=== PATIENT | female | born 1955 | race Caucasian/White ===

== ENCOUNTER 2021-01-30 19:29 | Inpatient (IN) | payer OTHER ==
[2021-01-30] VITALS (168 sets, daily range): BP systolic 129; BP diastolic 78; PULSE 85; TEMP 98.5; O2SAT 92–98
[~2021-01-30] VITALS: Ht 149.9 cm; Wt 59.1 kg
--- NOTE | 2021-01-30 20:20 | NUR ---
Pt arrived to room ICU 5 via cart with EMS. Pt able to transfer from the cart to the ICU bed with SBA. Pt oriented to room and call ilt system. VALERIA Begum, at the bedside to see pt. Call light within reach.
[2021-01-30] MEDS ORDERED: FLOVENT 110MCG7.9 GM IH (20:56)
[2021-01-30] MEDS ORDERED: FLONASE NASAL S16 GM NS (20:56)
[2021-01-30] MEDS ORDERED: VALTREX1 GM PO (20:57)
[2021-01-30] MEDS ORDERED: VITAMIN D31000 I1 PO (20:58)
[2021-01-30] MEDS ORDERED: CRESTOR 10MG10 MG PO (20:59)
[2021-01-30] MEDS ORDERED: GLUCOPHAGE500 MG/TAB PO (20:59)
[2021-01-30] MEDS ORDERED: ZYRTEC 10MG10 MG PO (21:00)
[2021-01-30] MEDS ORDERED: PRINIVIL10 MG PO (21:00)
[2021-01-30] MEDS ORDERED: PROAIR HFA0.09 MG/AC IH (21:01)
[2021-01-30] MEDS ORDERED: LIDODERM 5% PATC1 EA TP (21:02)
[2021-01-30] MEDS ORDERED: EPIPEN 2-PAK1 MG/ML IM (21:02)
[2021-01-30] MEDS ORDERED: VOLTAREN GEL 1%1 TU TP (21:03)
[2021-01-30 21:49] LABS: MAGNESIUM 1.9 mg/dL (1.6-2.3); PHOSPHOROUS 4.4 mg/dL (2.5-4.5)
[2021-01-30 21:54] LABS: COLLECTION METHOD CATHETER
[2021-01-30 22:09] LABS: PH 6 (5-8); SQUAMOUS EPITHELIAL None Seen /hpf; URINE APPEARANCE Clear; URINE BACTERIA Rare /hpf; URINE BILIRUBIN Negative (NEGATIVE); URINE BLOOD 2+ (NEGATIVE); URINE COLOR Straw; URINE GLUCOSE Negative (NEGATIVE); URINE KETONE Negative (NEGATIVE); URINE LEUKOCYTE ESTERASE Negative (NEGATIVE); URINE NITRATE Negative (NEGATIVE); URINE PROTEIN(semi-quant) 2+ (NEGATIVE); URINE UROBILINOGEN Negative (NEGATIVE)
[2021-01-30 22:24] LABS: CREATININE, serum 4.77 (0.52-1.25)
[2021-01-31] VITALS (530 sets, daily range): BP systolic 104–118; BP diastolic 54–96; PULSE 79–110; TEMP 97.8–98.7; O2SAT 89–99
[2021-01-31 05:34] LABS: GRAN # 5.7 (1.4-6.5); GRAN % 89.9 % (42.2-75.2); HEMOGLOBIN 12.5 g/dl (12.5-16.0); LYMPH # 0.5 (1.2-3.4); LYMPH % 7.4 % (20.0-51.0); MEAN CELL VOLUME 92 fl (80.0-100.0); MEAN CORPUSCULAR HEMOGLOBIN 31 pg (27.0-31.0); MEAN CORPUSCULAR HGB CONC 34 g/dl (33.0-37.0); MEAN PLATELET VOLUME 9.9 fl (7.4-10.4); MONO # 0.1 (0.1-0.6); MONO % 2.2 % (1.7-9.3); PLATELET COUNT 193 K/mm3 (130-400); RED BLOOD COUNT 3.98 M/mm3 (4.10-5.30); REDCELL DISTRIBUTION WIDTH-CV 14.4 % (11.5-14.5)
[2021-01-31 05:37] LABS: HEMATOCRIT 36.7 % (37.0-47.0)
[2021-01-31 05:44] LABS: CREATININE, serum 4.33 (0.52-1.25); POTASSIUM 4.2 mmol/L (3.4-5.0)
--- NOTE | 2021-01-31 07:00 | NUR ---
Bedside shift report given to HEVER Christiansen.
[2021-01-31] MEDS ORDERED: [UNRECOGNIZED DRUG - OTHER] (17:39)
--- NOTE | 2021-01-31 19:14 | NUR ---
Pt arrived to floor this evening with ICU staff. Resting in bed. droplet precautions in place. denied pain upon arrival but now in pain, called hospitalist for pain meds as none were continued on transfer. REport given to HEVER Philip on nightshift who will resume care.
--- NOTE | 2021-01-31 19:35 | NUR ---
Awake, alert, oriented x 3, verbal with clear speech, updated daughter and patient on plan of care, telemetry in use, mills per gravity w/o issue, tolerating general diet w/o issue
[2021-02-01] VITALS (9 sets, daily range): BP systolic 114–147; BP diastolic 45–78; PULSE 83–119; TEMP 97.4–98.1
[2021-02-01 07:06] LABS: BASO % 0.2 % (0.0-2.0); GRAN # 8.4 (1.4-6.5); GRAN % 70.7 % (42.2-75.2); LYMPH # 2.4 (1.2-3.4); LYMPH % 20.2 % (20.0-51.0); MEAN CELL VOLUME 94 fl (80.0-100.0); MEAN CORPUSCULAR HEMOGLOBIN 32 pg (27.0-31.0); MEAN CORPUSCULAR HGB CONC 34 g/dl (33.0-37.0); MEAN PLATELET VOLUME 10.3 fl (7.4-10.4); MONO % 8.5 % (1.7-9.3); PLATELET COUNT 191 K/mm3 (130-400); RED BLOOD COUNT 3.49 M/mm3 (4.10-5.30); REDCELL DISTRIBUTION WIDTH-CV 15.1 % (11.5-14.5)
[2021-02-01 07:10] LABS: HEMATOCRIT 32.7 % (37.0-47.0)
[2021-02-01 07:23] LABS: CALCIUM 8.2 mg/dL (8.4-10.2); CREATININE, serum 1.77 (0.52-1.25); POTASSIUM 3.6 mmol/L (3.4-5.0)
--- NOTE | 2021-02-01 08:00 | NUR ---
PT SHIVERING IN THE BED, REPORTING BEING COLDER THAN NORMAL, TEMPERATURE TURNED UP IN THE ROOM AND WARM BLANKET BROUGHT IN FOR PT. PT DENIES PAIN AT THIS TIME AND STATED THE NORCO HELPS A LOT BUT THEN DID SAY THAT SHE SHIVERED SO MUCH SHE GAVE HERSELF A BACKACHE. LIDOCAINE PATCH PLACED ON BACK. PT MEDICATIONS GIVEN, FRESH ICE WATER BROUGHT IN FOR PT, BREAKFAST SET UP FOR PT. EDUCATED TO NOT GET UP ON HER OWN WITHOUT ASSISTANCE, BED ALARM SET. PT REPORTED GETTING SOB AFTER BRUSHING HER TEETH EARLIER AND SAID THIS HAS NOT HAPPENED IN THE PAST COUPLE DAYS. PT REPORTS FEELING TIRED AT REST WELL.
--- NOTE | 2021-02-01 09:46 | NUR ---
PT REPORTED FEELING DIZZY, PT THEN SAID SHE FELT LIKE SHE "JUST GOT DONE RUNNING A MARATHON". PT VITALS TAKEN AND STABLE. PT THEN REPORTED JUST FEELING TIRED AND HAVING SOB WITH ACTIVITY. NO OTHER NEEDS AT THIS TIME, PT ON RA.
--- NOTE | 2021-02-01 10:30 | NUR ---
PT HAD GOTTEN UP TO GRAB PHONE THAT HAD FALLEN ON THE FLOOR, PT VERY SOB AT REST, ASKED IF PT WOULD LIKE BREATHING TREATMENT AND PT DENIED NEED FOR IT. PT JUST KEPT SAYING "IM JUST VERY TIRED". MICHELLE LEBRON NOTIFIED OF PT SOB.
--- NOTE | 2021-02-01 11:21 | NUR ---
SW met with the patient to discuss discharge plan. The patient lives in [place] with her , Cl (ph#[phone]), and grandson. She reports independence with ADLs and does not have any DME. The patient's receives primary care at [facility] and she also receives her meds there. She states that she does not see any specific provider at [facility]. The patient does not have a DPOA-HC in EMR, but she states that she does have one completed and at home. She states that she designated her sister, Mechelle Hutson (ph#[phone]). The patient plans to return home with her family upon discharge. No additional needs at this time. *Discharge plan: home with family*
--- NOTE | 2021-02-01 17:29 | NUR ---
PT REPORTING CONSISTENT PAIN 4/10 DURING SHIFT, ANTIBIOTICS RUNNING, FLUIDS RUNNING, PT HAS GOOD ORAL INTAKE, ROSARIO REMOVED AND PT URINATING W/O DIFFICULTY. PT HAS GOOD APPETITE, PT SOB W/ ACITVITY. NO OTHER NEEDS
--- NOTE | 2021-02-01 19:00 | NUR ---
Received report from Mala. Patient complains of low back pain with pain score of 7-8/10. [place] tab given.
--- NOTE | 2021-02-01 21:14 | NUR ---
Assesment done. Patient's pain on her lower back is now at 5-6/10. Called Radiology at [facility] to inform them regarding ordered portable chest x-ray. Ramiro said he'll check on it and be here later. Her blood glucose at [facility] was 209mg/dl. About to give her insulin but she wants to have it rechecked since she said she just eat her dinner few hours ago. On rechecked, she was now at 157mg/dl.
--- NOTE | 2021-02-01 22:59 | NUR ---
Patient went down to Radiology for Chest X-ray.
--- NOTE | 2021-02-01 23:20 | NUR ---
Patient back to room from Radiology.
[2021-02-02 04:15] VITALS: BP 161/76; PULSE 87; TEMP 97.5
--- NOTE | 2021-02-02 06:20 | NUR ---
Patient complains of low back pain, 10/10 pain score. Lovilia given. She complains of feeling bloated. Asked her if she wants some medication for that and she said she'll wait for the Lovilia to take effect.
[2021-02-02 07:09] LABS: HEMOGLOBIN 11.3 g/dl (12.5-16.0); MEAN CELL VOLUME 93 fl (80.0-100.0); MEAN CORPUSCULAR HEMOGLOBIN 31 pg (27.0-31.0); MEAN CORPUSCULAR HGB CONC 34 g/dl (33.0-37.0); MEAN PLATELET VOLUME 10.6 fl (7.4-10.4); PLATELET COUNT 200 K/mm3 (130-400); RED BLOOD COUNT 3.61 M/mm3 (4.10-5.30); REDCELL DISTRIBUTION WIDTH-CV 15.2 % (11.5-14.5)
[2021-02-02 07:18] LABS: HEMATOCRIT 33.4 % (37.0-47.0)
[2021-02-02 07:21] LABS: CALCIUM 8.8 mg/dL (8.4-10.2); CREATININE, serum 0.91 (0.52-1.25); POTASSIUM 3.5 mmol/L (3.4-5.0)
[2021-02-02 08:02] VITALS: BP 149/72; PULSE 83; TEMP 97.6
--- NOTE | 2021-02-02 09:24 | NUR ---
PT PLEASANT, AOX4, NEURO CHECK STABLE AND CONSISTENT WITH RESULTS FROM PREVIOUS DAY, PT ORDERED BREAKFAST, MEDS GIVEN AND EXPLAINED, FLUIDS INFUSING, CALL LIGHT WITHIN REACH, FRESH ICE WATER BROUGHT IN, PT REPORTS PAIN IN ABD 6/10. NO OTHER NEEDS AT THIS TIME.
[2021-02-02] MEDS ORDERED: OMNICEF 300MG300 MG PO (10:27)
[2021-02-02] MEDS ORDERED: ALBUTEROL SULFAT3 M3 IH (10:28)
[2021-02-02] MEDS ORDERED: MUCUS RELIEF200 MG PO (10:30)
[2021-02-02] MEDS ORDERED: PREDNISONE20 MG PO ×2 (10:30→13:16)
--- NOTE | 2021-02-02 11:30 | NUR ---
PT PLEASANT, AOX4, DISCHARGE EDUCATION PROVIDED, EDUCATED ON SIDE EFFECTS OF NEW MEDICATIONS, BOTH IV SITES REMOVED. PT ESCORTED OUT, PT REFUSED WHEELCHAIR. ACCORDING TO POWDER MILL OPERATOR WALKING PT OUT SHE SAID SHE FELT DIZZY, POWDER MILL OPERATOR ASKED PT TO REST AND PT REFUSED AND WANTED TO LEAVE. PT HAS BEEN HAVING EPISODES LIKE THIS DURING STAY.
== END 2021-02-02 11:25 | disposition home or self-care (01) | DRG 693 ==
LOC: ICU 19:29 → MEDICAL 01-31 17:28
PROVIDERS: Nurse Practitioner Family; Physician Assistant; Student in an Organized Health Care Education/Training Program; ADMIT Internal Medicine
DX: N20.0 Calculus of kidney (principal); N17.0 Acute kidney failure with tubular necrosis; J45.901 Unspecified asthma with (acute) exacerbation; E87.2 Acidosis; E78.5 Hyperlipidemia, unspecified; M06.9 Rheumatoid arthritis, unspecified; J45.909 Unspecified asthma, uncomplicated; E86.0 Dehydration; K42.9 Umbilical hernia without obstruction or gangrene; K80.20 Calculus of gallbladder without cholecystitis without obstruction; B97.89 Other viral agents as the cause of diseases classified elsewhere; J44.9 Chronic obstructive pulmonary disease, unspecified; E11.22 Type 2 diabetes mellitus with diabetic chronic kidney disease; E87.8 Other disorders of electrolyte and fluid balance, not elsewhere classified; N18.9 Chronic kidney disease, unspecified; Z79.84 Long term (current) use of oral hypoglycemic drugs; Z87.891 Personal history of nicotine dependence; Z88.6 Allergy status to analgesic agent
CPT/HCPCS: 99232-AI; 99233-AI; 99239; A4314; J0696; J1170; J1644; J2920; J7030; J7512

== ENCOUNTER 2021-02-22 07:10 | Day surgery (SDC) | payer OTHER ==
[~2021-02-22] VITALS: Ht 149.9 cm; Wt 55.2 kg
[2021-02-22] VITALS (9 sets, daily range): BP systolic 98–140; BP diastolic 49–73; PULSE 60–80; TEMP 97.4–98.6
[~2021-02-22 07:10] MED LIST: ALBUTEROL SULFAT3 M3 IH; CRESTOR 10MG10 MG PO; EPIPEN 2-PAK1 MG/ML IM; FLONASE NASAL S16 GM NS; FLOVENT 110MCG7.9 GM IH; GLUCOPHAGE500 MG/TAB PO; LIDODERM 5% PATC1 EA TP; MUCUS RELIEF200 MG PO; OMNICEF 300MG300 MG PO; PREDNISONE20 MG PO; PRINIVIL10 MG PO; PROAIR HFA0.09 MG/AC IH; VALTREX1 GM PO; VITAMIN D31000 I1 PO; VOLTAREN GEL 1%1 TU TP; ZYRTEC 10MG10 MG PO; [UNRECOGNIZED DRUG - OTHER]
[2021-02-22] MEDS ORDERED: NORCO 325 MG-51 TAB PO (12:47)
--- NOTE | 2021-02-22 13:50 | NUR ---
TO RM 2 PER CART FROM PACU. OPENS EYES WITH VERBAL STIMULI AND FALLS BACK TO SLEEP. NO SIGNS OF DISTRESS OR C/O OF PAIN. AT BEDSIDE. CLEAR DRESSINGS OVER INCISION SITES CLEAN DRY INTACT.
--- NOTE | 2021-02-22 14:05 | NUR ---
RESTING QUIETLY- AT TIMES WILL TAKE SIPS OF WATER AND FALLS BACK TO SLEEP.
--- NOTE | 2021-02-22 14:35 | NUR ---
OPENS EYES WITH VERBAL STIMULI AND FALLS BACK TO SLEEP.
--- NOTE | 2021-02-22 15:05 | NUR ---
PATIENT MORE AWAKE AND TALKING WITH AND STAFF. RECEIVED CRACKERS/GRAPE JELLY AND JELLO.
--- NOTE | 2021-02-22 15:32 | NUR ---
VSS ON ROOM AIR. PATIENT EATS SALTINES WITH JELLY AND DRINKS WITHOUT PROBLEMS. PATIENT DOES C/O DISCOMFORT RATES 04/30. 1540 PATIENT GIVEN NORCO 1 TAB ORDERED. PATIENT C/O'S FEELING WHOOSY WHEN BLOOD SUGAR IS LOW. ACCU CHECK DONE -- 91. PATIENT NOT TAKING MEDS AT THIS TIME.
--- NOTE | 2021-02-22 16:05 | NUR ---
VSS ON ROOM AIR. PATIENT STATES THAT [facility] IS HELPING WITH DISCOMFORT. PATIENT AND STATE THEY ARE READY TO GO HOME. 1615 DISCHARGE INSTRUCTIONS GIVEN VERBAL AND DISCHARGE PACKET PROVIDED. QUESTIONS ANSWERED AND PATIENT AND VOICED UNDERSTANDING. IV SITE DC'D WITH CATHETER TIP INTACT. PRESSURE AND BANDAGE APPLIED. PATIENT CHANGES INTO STREET CLOTHES. 1630 PATIENT DISCHARGED PER WHEELCHAIR ACCOMPANIED BY AMB STAFF. DRIVING TRUCK.
== END 2021-02-22 16:36 | disposition home or self-care (01) ==
LOC: SDCO 07:10
DX: K80.10 Calculus of gallbladder with chronic cholecystitis without obstruction (principal); E11.9 Type 2 diabetes mellitus without complications; E78.5 Hyperlipidemia, unspecified; M06.9 Rheumatoid arthritis, unspecified; J45.909 Unspecified asthma, uncomplicated; G89.29 Other chronic pain; M54.9 Dorsalgia, unspecified; Z20.822 Contact with and (suspected) exposure to COVID-19; Z90.710 Acquired absence of both cervix and uterus; Z88.6 Allergy status to analgesic agent; Z91.030 Bee allergy status; Z87.891 Personal history of nicotine dependence; Z79.899 Other long term (current) drug therapy; Z79.84 Long term (current) use of oral hypoglycemic drugs; Z80.3 Family history of malignant neoplasm of breast
CPT/HCPCS: J0330; J0690; J1170; J2250; J2405; J2704; J3010; J7120